=== PATIENT | female | born 1970 | race Caucasian/White ===

== ENCOUNTER → 2024-02-11 13:22 | Outpatient (REF) | payer BC, SELFPAY | LOC: HWWDC 13:22 | PROVIDERS: ATTENDING PHYSICIAN Student in an Organized Health Care Education/Training Program | DX: Z12.31 Encounter for screening mammogram for malignant neoplasm of breast (principal) | CPT/HCPCS: 77063; 77067 ==

== ENCOUNTER → 2024-02-20 08:06 | Outpatient (REF) | payer BC, SELFPAY | LOC: HWRAD 08:06 | PROVIDERS: ATTENDING PHYSICIAN Student in an Organized Health Care Education/Training Program | DX: K76.0 Fatty (change of) liver, not elsewhere classified (principal) | CPT/HCPCS: 76700 ==

== ENCOUNTER → 2025-03-04 08:52 | Outpatient (REF) | payer BC, SELFPAY | LOC: DHSLP 08:52 | PROVIDERS: ATTENDING PHYSICIAN Internal Medicine Critical Care Medicine; FAMILY PHYSICIAN Emergency Medicine | DX: G47.33 Obstructive sleep apnea (adult) (pediatric) (principal); R09.02 Hypoxemia | CPT/HCPCS: 95800 ==

== ENCOUNTER → 2025-03-05 13:02 | Outpatient (REF) | payer BC, SELFPAY | LOC: HWWDC 13:02 | PROVIDERS: ATTENDING PHYSICIAN Obstetrics & Gynecology Gynecology; FAMILY PHYSICIAN Emergency Medicine | DX: Z12.31 Encounter for screening mammogram for malignant neoplasm of breast (principal) | CPT/HCPCS: 77063; 77067 ==

== ENCOUNTER → 2025-05-21 12:30 | Outpatient (REF) | payer BC, SELFPAY | LOC: HWRAD 12:30 | PROVIDERS: ATTENDING PHYSICIAN Nurse Practitioner Family | DX: S69.91XA Unspecified injury of right wrist, hand and finger(s), initial encounter (principal) | CPT/HCPCS: 73140 ==